=== PATIENT | male | born 1970 | race Caucasian/White ===

== ENCOUNTER → 2020-08-18 07:29 | Outpatient (CLI) | payer OTHER, SELFPAY ==
--- NOTE | ~2020-08-18 | XR_ITS ---
EXAMINATION: XR lumbar spine 6V w bending DATE: 08/18/2020 08:18 INDICATION: Low back pain TECHNIQUE: Anteroposterior, lateral in neutral, flexion and extension, and bilateral oblique views of the lumbar spine, and cone-down lateral view of the lumbosacral junction were obtained. COMPARISON: 12/09/2016 FINDINGS: There are 3 mm of retrolisthesis of L4 on L5. No laxity is present with flexion or extensio n. There is moderate loss of intervertebral disc space height at L4-5 and L5-S1. The vertebral body h eights are maintained. There is no fracture. Small degenerative osteophytes project from the anterior endplates of multiple vertebral bodies. There is mild facet osteoarthritis of the lower lumbar spine . A moderate volume of colonic stool is present. IMPRESSION: 1. Mild lumbar spondylosis without acute findings or significant interval change. Reviewed, dictated and finalized at location A. IMPRESSION: 1. Mild lumbar spondylosis without acute findings or significant interval [place]
== END ==
PROVIDERS: PCP Nurse Practitioner Family; Visit Provider Chiropractor
DX: M47.896 Other spondylosis, lumbar region (principal)
CPT/HCPCS: 72114

== ENCOUNTER → 2020-09-09 07:55 | Outpatient (CLI) | payer OTHER, SELFPAY ==
--- NOTE | ~2020-09-09 | MR_ITS ---
EXAMINATION: MR lumbar spine wo con DATE: 09/09/2020 08:32 INDICATION: Left-sided low back pain. Left leg pain. TECHNIQUE: Magnetic resonance imaging (MRI) of the lumbar spine was performed without intravenous con trast. Sequences included sagittal T2-weighted FSE, sagittal T2-weighted FS FSE, sagittal T1-weighted FSE, and axial T2-weighted FSE. COMPARISON: Lumbar spine radiographs 08/18/2020 FINDINGS: There is 6 degrees levocurvature of lumbar spine. There is 3 mm retrolisthesis of L4 on L5. L5 is a transitional segment. Vertebral body heights are normal. There is moderately decreased disc height at L4-L5 with endplate remodeling. The distal spinal cord signal intensity is normal. The conu s medullaris is at T12-L1. There is a 9.0 cm cyst in left kidney. The following disc levels are speci fically discussed: L1-L2: The disc does not extend beyond the endplate margin. There is mild bilateral facet joint osteo arthritis. There is no neural foraminal stenosis. There is no central canal stenosis. L2-L3: There is a left subarticular and foraminal zone extrusion that exerts mass effect on left L3 n erve root. There is mild bilateral facet joint osteoarthritis. There is moderate left neural foramina l stenosis. There is mild central canal stenosis. L3-L4: The disc is bulging. There is mild bilateral facet joint osteoarthritis. There is mild bilater al neural foraminal stenosis. There is no central canal stenosis. L4-L5: The disc is bulging and has an annular fissure and exerts mass effect on left L5 nerve root in left lateral recess. There is no facet joint osteoarthritis. There is mild bilateral neural foramina l stenosis. There is mild central canal stenosis with asymmetry stenosis of left lateral recess. L5-S1: There is a left foraminal extrusion. There is no facet joint osteoarthritis. There is mild lef t neural foraminal stenosis. There is no central canal stenosis. IMPRESSION: 1. Moderate lumbar spondylosis, worst at L2-L3 and L4-L5. Reviewed, dictated and finalized at location B.
== END ==
PROVIDERS: PCP Nurse Practitioner Family; Visit Provider Chiropractor
DX: M54.5 Low back pain (principal); M47.816 Spondylosis without myelopathy or radiculopathy, lumbar region
CPT/HCPCS: 72148

== ENCOUNTER 2020-09-28 08:06 | Outpatient (CLI) | payer OTHER, SELFPAY ==
--- NOTE | ~2020-09-28 | US_ITS ---
EXAMINATION: US renal BI DATE: 09/28/2020 09:18 INDICATION: Left renal cyst TECHNIQUE: Multiple ultrasound grayscale images of the kidneys were obtained. COMPARISON: MRI dated 09/09/2020 FINDINGS: The right kidney measures 10.8 x 4.9 x 5.9 cm. The left kidney measures 12.1 x 7.5 x 6.3 cm. 9.6 x 6. 0 x 8.2 cm simple anechoic cyst in the left kidney. The kidneys demonstrate normal echogenicity. Ther e is no hydronephrosis in either kidney. No stones identified. The bladder is normal with bilateral ureteral jets identified on color Doppler. Prostatomegaly measuring 4.9 x 4.1 x 4.1 cm. IMPRESSION: 1. 9.6 cm simple left renal cyst. Otherwise normal kidneys without hydronephrosis. 2. Prostatomegaly. Reviewed, dictated and finalized at location A. IMPRESSION: 1. 9.6 cm simple left renal cyst. Otherwise normal kidneys without hydronephro sis. 2. Prostatomegaly.
== END 2020-09-28 08:07 | disposition home or self-care (01) ==
PROVIDERS: PCP Nurse Practitioner Family; Visit Provider Nurse Practitioner Family
DX: N28.1 Cyst of kidney, acquired (principal); N40.0 Benign prostatic hyperplasia without lower urinary tract symptoms
CPT/HCPCS: 76775

== ENCOUNTER 2020-10-30 00:12 | Day surgery (SDC) | payer OTHER, SELFPAY ==
[2020-10-16 12:50] VITALS: BMI 26.3
[2020-10-30 09:07] VITALS: BP 117/96; PULSE 81; RESP 18; TEMP 36.4; O2SAT 98; BMI 25.2
[2020-10-30] MEDS: LACTATED RINGERS 1,000 ML 150 ML IV CONT (09:13)
--- NOTE | 2020-10-30 09:29 | WPDANESEPPF ---
Anes - Initial Pre Proc Eval Procedure: Operation Date: 10/30/20 10:00 Proposed Procedures p Screening Colonoscopy - Gómez Nevarez MD Date/Time: 10/30/20 09:29 Surgeon: Gómez Nevarez MD Pre Op Diagnosis: neoplasm screening Patient Data Age: 50 Gender: M Height: 1.88 m Weight: 89.2 kg Last Vital Signs Temp 36.4 C 10/30/20 09:07 Pulse 81 10/30/20 09:07 Resp 18 10/30/20 09:07 BP 117/96 H 10/30/20 09:07 Pulse Ox 98 10/30/20 09:07 Allergies Allergy/AdvReac Type Severity Reaction Status Date / Time No Known Allergies Allergy Verified 10/30/20 09:05 Home Medications Medication Instructions Recorded Confirmed Type amlodipine 10 mg tablet 10 mg PO DAILY 09/07/20 10/16/20 History hydrochlorothiazide 12.5 mg tablet 12.5 mg PO DAILY 09/07/20 10/16/20 History lisinopril 40 mg tablet 40 mg PO DAILY 09/07/20 10/16/20 History sodium,potassium,mag sulfates 17.5 See Rx Instructions PO .COMPLEX 09/10/20 Rx gram-3.13 gram-1.6 gram oral soln #354 ml Patient hx anesthesia problems: none Family hx anesthesia problems: none PMFSH Past Medical History Medical History Essential (primary) hypertension Mixed hyperlipidemia Numbness and tingling in both hands Surgical History Surgical History History of tonsillectomy Social History Social History Social History: . 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 Smoking packs per day: 1 Smoking cigarettes per day: 20.0 Years smoked: 20 Smoking pack-years: 20.00 Smoking status: Former smoker Tobacco type: cigarettes Alcohol intake: never Substance use: never Substance use type: does not use Living arrangements: with family Spiritual care concerns: No Anes - Eval Final PreProcedure Day of Procedure 10/30/20 09:29 Patient weight: normal Heart: regular rate and rhythm Lungs: clear to auscultation Airway: Mallampati scale class II Neurological: alert and oriented Last oral intake: >/= 8 hours ASA classification: II Emergent: no Anesthetic plan: proceed Anesthesia type and monitoring: general GIVS and standard monitoring Informed Consent: The patient's anesthetic plan and its attendant risks and benefits were discussed with the patient/family/POA. Questions were solicited and answers provided to the satisfaction of the patient/family/POA.
--- NOTE | 2020-10-30 10:18 | PM.HPGS ---
History of Present Illness History of Present Illness Consent: Risks, benefits, and alternatives have been discussed and questions answered. Patient agrees to proceed with procedure. Chief complaint: neoplasm screening Narrative: Emilio Vo is a 50 year old male here for first screening colonoscopy Review of Systems Constitutional: Constitutional: Denies headache(s) and Denies weakness Eyes: Eyes: Denies blurry vision ENT: Reports Normal hearing present, Denies headache(s) and Denies neck pain Cardiovascular: Cardiovascular: Denies chest pain and Denies dyspnea Respiratory: Respiratory: Denies dyspnea Gastrointestinal: Gastrointestinal: Reports no additional gastrointestinal complaints Genitourinary: Genitourinary: Denies dysuria Musculoskeletal: Musculoskeletal: Denies neck pain Integumentary/Breasts: Skin/Breast: Denies dry skin Neurologic: Reports Normal hearing present, Denies headache(s) and Denies weakness Psychiatric: Psychiatric: Denies anxiety Endocrine: Endocrine: Denies change in body appearance Hematologic/Lymphatic: Hematologic/Lymphatic: Denies easy bleeding Allergic/Immunologic: Allergic/Immunologic: Denies urticaria PMFSH Past Medical History Medical History Essential (primary) hypertension Mixed hyperlipidemia Numbness and tingling in both hands Surgical History Surgical History History of tonsillectomy Social History Social History Social History: . 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 Smoking packs per day: 1 Smoking cigarettes per day: 20.0 Years smoked: 20 Smoking pack-years: 20.00 Smoking status: Former smoker Tobacco type: cigarettes Alcohol intake: never Substance use: never Substance use type: does not use Living arrangements: with family Spiritual care concerns: No Meds Home Medications and Allergies Home Medications Medication Instructions Recorded Confirmed Type amlodipine 10 mg tablet 10 mg PO DAILY 09/07/20 10/16/20 History hydrochlorothiazide 12.5 mg tablet 12.5 mg PO DAILY 09/07/20 10/16/20 History lisinopril 40 mg tablet 40 mg PO DAILY 09/07/20 10/16/20 History sodium,potassium,mag sulfates 17.5 See Rx Instructions PO .COMPLEX 09/10/20 Rx gram-3.13 gram-1.6 gram oral soln #354 ml Allergies Allergy/AdvReac Type Severity Reaction Status Date / Time No Known Allergies Allergy Verified 10/30/20 09:05 Vital Signs Vital Signs - 24 hr 10/30/20 09:07 Temperature 97.6 F Pulse Rate 81 Respiratory Rate 18 Blood Pressure 117/96 H Pulse Oximetry 98 Exam Const: General: comfortable and no acute distress HENMT: General nose exam: Normal nares present Eyes: General: appearance normal, both eyes and all related structures Neck: Neck: no JVD Resp: Auscultation: clear to auscultation bilaterally Cardio: Rate: regular rate Rhythm: regular rhythm GI: Inspection: non-distended GI Palp: Yes Soft to palpation Skin: General skin exam: normal color Neuro: General: gait normal Speech: normal speech Extrem: General: normal to inspection Psych: Mental Status: mental status grossly normal Assessment and Plan Assessment and plan (1) Encounter for screening for malignant neoplasm of colon: Code(s): Z12.11 - Encounter for screening for malignant neoplasm of colon Status: Acute Assessment and Plan: colonoscopy
[2020-10-30 10:39] VITALS: BP 112/72; PULSE 78; RESP 24; O2SAT 99
[2020-10-30 10:49] VITALS: BP 130/90; PULSE 66; RESP 19; O2SAT 99
[2020-10-30 10:59] VITALS: BP 140/97; PULSE 61; RESP 17; O2SAT 100
== END 2020-10-30 11:10 | disposition home or self-care (01) ==
PROVIDERS: PCP Nurse Practitioner Family; Visit Provider Internal Medicine Gastroenterology
PROC: 0DJD8ZZ Inspection of Lower Intestinal Tract, Via Natural or Artificial Opening Endoscopic (ICD-10-PCS; CPT 45378; principal; 2020-10-30 10:00)
DX: Z12.11 Encounter for screening for malignant neoplasm of colon (principal); D12.3 Benign neoplasm of transverse colon; K57.30 Diverticulosis of large intestine without perforation or abscess without bleeding; K64.8 Other hemorrhoids; K64.4 Residual hemorrhoidal skin tags; I10 Essential (primary) hypertension; E78.2 Mixed hyperlipidemia; R20.2 Paresthesia of skin; Z87.891 Personal history of nicotine dependence
CPT/HCPCS: 45385; 88305; J2704; J7120

== ENCOUNTER 2021-09-15 08:54 | Outpatient (CLI) | payer OTHER, SELFPAY ==
--- NOTE | 2021-09-15 12:00 | NEURO_ITS ---
Impression: # Complains of numbness of right 4th and 5th fingers. # Right ulnar neuropathy across the elbow. # Normal needle/EMG exam. # Clinical correlation recommended. Nerve Conduction Studies Anti Sensory Summary Table Stim Site NR Peak (ms) P-T Amp (?V) Site1 Site2 Delta-P (ms) Dist (cm) Francisco (m/s) Left Median Anti Sensory (2-3nd Digit) Wrist 3.0 50.2 Wrist 2-3nd Digit 3.0 14.0 47 Wrist 3.0 13.5 Wrist 2-3nd Digit 3.0 14.0 47 Right Median Anti Sensory (2-3nd Digit) Wrist 2.8 58.7 Wrist 2-3nd Digit 2.8 14.0 50 Wrist 2.9 31.7 Wrist 2-3nd Digit 2.8 14.0 50 Left Radial Anti Sensory (Base 1st Digit) Wrist 2.3 13.7 Wrist Base 1st Digit 2.3 0.0 Right Radial Anti Sensory (Base 1st Digit) Wrist 2.7 11.0 Wrist Base 1st Digit 2.7 0.0 Left Ulnar Anti Sensory (5th Digit) Wrist 2.9 22.9 Wrist 5th Digit 2.9 14.0 48 Right Ulnar Anti Sensory (5th Digit) Wrist 2.7 35.4 Wrist 5th Digit 2.7 14.0 52 Motor Summary Table Stim Site NR Onset (ms) O-P Amp (mV) Site1 Site2 Delta-0 (ms) Dist (cm) Francisco (m/s) Left Median Motor (Abd Poll Brev) Wrist 2.7 4.9 Elbow Wrist 5.2 30.0 58 Elbow 7.9 4.7 Right Median Motor (Abd Poll Brev) Wrist 3.0 2.6 Elbow Wrist 5.5 33.0 60 Elbow 8.5 4.7 Left Ulnar Motor (Abd Dig Minimi) Wrist 2.8 5.8 A Elbow Wrist 5.8 33.0 57 A Elbow 8.6 5.3 Right Ulnar Motor (Abd Dig Minimi) Wrist 2.9 6.5 A Elbow Wrist 6.4 32.0 50 A Elbow 9.3 4.6 B Elbow Wrist 3.8 21.0 55 B Elbow 6.7 5.1 F Wave Studies NR F-Lat (ms) L-R F-Lat (ms) Left Median (Mrkrs) (Abd Poll Brev) 30.45 0.45 Right Median (Mrkrs) (Abd Poll Brev) 30.00 0.45 Left Ulnar (Mrkrs) (Abd Dig Min) 31.41 1.42 Right Ulnar (Mrkrs) (Abd Dig Min) 29.99 1.42 EMG Side Muscle Nerve Root Ins Act Fibs Amp Dur Recrt Comment Right 1stDorInt Ulnar C8-T1 Nml Nml Nml Nml Nml Right Ext Indicis Radial (Post Int) C7-8 Nml Nml Nml Nml Nml Right Ext Digitorum Radial (Post Int) C7-8 Nml Nml Nml Nml Nml Right BrachioRad Radial C5-6 Nml Nml Nml Nml Nml Right PronatorTeres Median C6-7 Nml Nml Nml Nml Nml Right Abd Poll Brev Median C8-T1 Nml Nml Nml Nml Nml Left 1stDorInt Ulnar C8-T1 Nml Nml Nml Nml Nml Left Ext Indicis Radial (Post Int) C7-8 Nml Nml Nml Nml Nml Left Ext Digitorum Radial (Post Int) C7-8 Nml Nml Nml Nml Nml Left BrachioRad Radial C5-6 Nml Nml Nml Nml Nml Left PronatorTeres Median C6-7 Nml Nml Nml Nml Nml Left Abd Poll Brev Median C8-T1 Nml Nml Nml Nml Nml Right ABD Dig Min Ulnar C8-T1 Nml Nml Nml Nml Nml Left ABD Dig Min Ulnar C8-T1 Nml Nml Nml Nml Nml MTDD
== END 2021-09-15 08:55 | disposition home or self-care (01) ==
PROVIDERS: PCP Nurse Practitioner Family; Visit Provider Psychiatry & Neurology Neurology
DX: G56.21 Lesion of ulnar nerve, right upper limb (principal)
CPT/HCPCS: 95886; 95911

== ENCOUNTER 2022-09-02 07:30 | Outpatient (RCR) | payer OTHER, SELFPAY ==
--- NOTE | 2022-08-19 08:32 | OTOPEVAL1 ---
Assessment and note entered by Tay Oliver, TOPHER/Jessy, CHT Evaluation Information Assessment Status Evaluation Diagnosis s/p (R) ulnar neuroplasty with subcutaneous transposition of the nerve Onset 07/19/22 Subjective Information Patient had bilateral cubital release on 07/19/22. He had a seroma on the right elbow which he had drained on 08/01/22. 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 He has progressed to back to lifting his camera and equipment, reporting being back to 95% normal . He is right hand dominant and reports this side is more painful at times. Reported Pain Level Pain Score 0 Additional Pain Score Comments No pain at rest. Right elbow pain increases with prolonged use, reporting 6/10 at worst in the last week. Assessment OT Clinical Summary Patient referred to outpatient hand therapy following bilateral ulnar nerve subcutaneous transposition ~4 weeks ago. His right elbow was more involved and had a post op seroma, which was drained ~2 weeks ago. He has 5/5 strength in bilateral UEs. Well Head Pumper strengths are well within normal limits. ROM on the right is near normal, lacking about 10 degrees of elbow flexion, however he is able to reach his face for feeding, grooming, etc. He was instructed in passive ROM HEP for the elbow and issued nerve flossing HEP. Plan to have him follow up in 2 weeks to assess progress and readiness for discharge. Plan of Care Interventions Therapeutic Exercise,Manual Therapy,Therapeutic Activities,Hot Pack/Cold Pack,Paraffin OT Services Indicated Yes Treatment Frequency and Follow up appointment in 2 weeks: 09/02/22 Duration These treatments will address the objective and functional deficits as defined above. The patient will be advanced safely and appropriately in order for the patient to progress towards his/her prior level of function. Additional exercises will be introduced and as well as a comprehensive home exercise program upon discharge, if needed, ?to ensure carryover of functional gains achieved in the clinic. This treatment plan has been reviewed and agreement upon by the patient.
--- NOTE | 2022-09-02 07:53 | OTOPDC ---
Assessment and note entered by Tay Oliver, OTR/L, CHT Evaluation Information Assessment Status Discharge Diagnosis s/p (R) ulnar neuroplasty with subcutaneous transposition of the nerve Onset 07/19/22 Subjective Information Patient had bilateral cubital release on 07/19/22. He had a seroma on the right elbow which he had drained on 08/01/22. 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 He has progressed to back to lifting his camera and equipment, reporting no discomfort in the UEs. Elbow ROM has returned to normal limits. UE gross strength and welding specialist strengths are WNL. Reported Pain Level Pain Score 0: Self Report Additional Pain Score Comments Reporting no pain in the last week. Just reports of tightness in the right elbow. Assessment OT Clinical Summary Patient referred to outpatient hand therapy following bilateral ulnar nerve subcutaneous transposition ~6 weeks ago. His right elbow was more involved and had a post op seroma, which was drained ~4 weeks ago. He has 5/5 strength in bilateral UEs. Lead Generation Marketing Manager strengths are well within normal limits. 2 weeks ago the right elbow as lacking 10 degrees of flexion and now has returned to normal limits. Patient has no functional limitations at this time. Discharging with goals met. Plan of Care OT Services Indicated No
== END 2022-09-02 08:14 | disposition home or self-care (01) ==
LOC: ANHOT 07:30
PROVIDERS: PCP Family Medicine; Visit Provider Plastic Surgery
DX: Z48.89 Encounter for other specified surgical aftercare (principal)
CPT/HCPCS: 97110; 97165